=== PATIENT | male | born 1945 | race Hispanic/Latino ===

== ENCOUNTER 2022-12-19 11:47 | Inpatient (IN) | payer MEDICARE, OTHER ==
[~2022-12-19] VITALS: Ht 177.8 cm; Wt 88.0 kg
[2022-12-19] MEDS ORDERED: ACETAMINOPHEN 325 MG TAB PO ONE (12:30)
[2022-12-19] MEDS ORDERED: IBUPROFEN 600 MG TABLET PO ONE (12:30)
[2022-12-19] MEDS ORDERED: 0.9%NACL 1000ML 1,000 ML IV ONE (12:30)
[2022-12-19] MEDS ORDERED: PANTOPRAZOLE 40 MG/VIAL IVP ONE (12:30)
[2022-12-19] MEDS ORDERED: ONDANSETRON 4MG INJ IVP ONE (12:30)
[2022-12-19 12:34] LABS: SARS-CoV-2, RNA, NAAT NEGATIVE SARS CoV-2 (NEGATIVE)
[2022-12-19 12:35] LABS: RAPID GROUP A STREP negative (NEGATIVE)
[2022-12-19 12:40] LABS: INFLUENZA TYPE B Negative For Type B (NEGATIVE)
[2022-12-19 12:54] LABS: BASOPHILS # (AUTO) 0.03 K/uL (0.00-0.20); BASOPHILS % (AUTO) 0.4 % (0.0-5.0); EOSINOPHILS # (AUTO) 0.03 K/uL (0.00-0.70); EOSINOPHILS % (AUTO) 0.4 % (0.0-8.0); HEMATOCRIT 44.1 % (42-54); IMMATURE GRANULOCYTE ABSOLUTE 0.02 K/uL (0-1); LYMPHOCYTES # (AUTO) 0.7 K/uL (1.0-4.8); LYMPHOCYTES % (AUTO) 8.8 % (21.0-51.0); MEAN CORPUSCULAR HEMOGLOBIN 31.1 pg (27.0-33.0); MEAN CORPUSCULAR HGB CONC 34.2 g/dL (32.0-36.0); MEAN CORPUSCULAR VOLUME 90.7 fL (79-99); MONOCYTES # (AUTO) 1.3 K/uL (0.1-1.0); MONOCYTES % (AUTO) 14.8 % (3.0-13.0); NEUTROPHILS # (AUTO) 6.4 K/uL (1.8-7.7); NEUTROPHILS % (AUTO) 75.4 % (40.0-77.0); PLATELET COUNT (AUTO) 162 K/uL (130-400); RED BLOOD CELL COUNT(AUTO) 4.86 MIL/uL (4.50-6.20); RED CELL DISTRIBUTION WIDTH 12.5 % (11.0-15.5); WHITE BLOOD COUNT (AUTO) 8.4 K/uL (4.8-10.8)
[2022-12-19 13:03] LABS: CREATININE 1.1 mg/dL (0.5-1.5); POTASSIUM 3.7 mmol/L (3.5-5.1)
[2022-12-19 13:05] LABS: INR 1.05 (0.85-1.15); PROTHROMBIN TIME 12.1 SEC (9.6-11.6)
[2022-12-19 13:06] LABS: INFLUENZA TYPE A Positive For Type A (NEGATIVE)
[2022-12-19 13:08] LABS: ALBUMIN 3.7 g/dL (3.5-5.0); BILIRUBIN,TOTAL 1.3 mg/dL (0.2-1.0); TOTAL PROTEIN, SERUM 8.4 g/dL (6.0-8.3)
[2022-12-19 13:20] LABS: APPEARANCE,URINE CLEAR (CLEAR); BILIRUBIN,URINE NEGATIVE (NEGATIVE); COLOR,URINE YELLOW (YELLOW); GLUCOSE, URINE (UA) NEGATIVE (NEGATIVE); KETONES,URINE NEGATIVE (NEGATIVE); LEUKOCYTE ESTERASE ,URINE NEGATIVE Leu/uL (NEGATIVE); NITRATE,URINE NEGATIVE (NEGATIVE); OCCULT BLOOD,URINE MODERATE (NEGATIVE); PROTEIN,URINE 200 mg/dL (NEGATIVE)
[2022-12-19 13:21] LABS: ADD UA MICROSCOPIC YES
[2022-12-19 13:23] LABS: MUCUS,URINE RARE LPF (None Seen); WBC,URINE 0-1 /HPF (0-1)
[2022-12-19 13:44] LABS: BAND NEUTROPHILS % (MANUAL) 22 % (0-2); BASOPHILS % (MANUAL) 1 % (0-2); LYMPHOCYTES % (MANUAL) 9 % (22-44); MAN.DIFF COMMENT-IMPRESSION MANUAL DIFFERENTIAL; MONOCYTES % (MANUAL) 14 % (2-9); PLATELET MORPHOLOGY COMMENT ADEQUATE; SEGMENTED NEUTROPHILS % 54 % (40-70); TOTAL CELLS COUNTED 100; WBC MORPHOLOGY CONSISTENT W/DIFF
[2022-12-19] MEDS ORDERED: OSELTAMIVIR PHOSPHATE 75 MG CAP PO ONE (14:00)
[2022-12-19] MEDS ORDERED: ONDANSETRON 4MG INJ IVP PRN (15:00)
[2022-12-19] MEDS ORDERED: THIAMINE HCL 100 MG/ML 2ML VIAL IVP ONE (15:00)
[2022-12-19] MEDS ORDERED: 0.9%NACL 50ML IV SCH (15:00)
[2022-12-19] MEDS: 0.9%NACL 1000ML 1,000 ML IV SCH (15:10)
[2022-12-19] MEDS: ZOSYN 3.375GM +NS 50ML IVPB SCH ×2 (15:10→23:55)
[2022-12-19 15:11] VITALS: TEMP 100
[2022-12-19] MEDS ORDERED: 0.9%NACL 1000ML 1,461 ML IV ONE (15:30)
[2022-12-19] MEDS ORDERED: IPRATROPIUM/ALBUTEROL SULFATE 3 ML SOLUTION IH PRN (15:30)
[2022-12-19] MEDS ORDERED: ACETAMINOPHEN 500 MG TABLET PO PRN (15:30)
[2022-12-19] MEDS ORDERED: NITROGLYCERIN 0.4 MG SL TAB SL PRN (15:30)
[2022-12-19] MEDS ORDERED: BUDESONIDE 0.5 MG/2 ML INH IH SCH (15:30)
[2022-12-19 15:49] LABS: CHOLESTEROL 97 mg/dL (<200); HDL CHOLESTEROL 52 mg/dL (29-71); LDL DIRECT 42 mg/dL (0-99); TRIGLYCERIDES 56 mg/dL (30-200)
[2022-12-19 15:52] LABS: HEMOGLOBIN A1C 5.6 % (4.0-6.0)
[2022-12-19 15:56] LABS: MAGNESIUM 1.7 mg/dL (1.80-2.40); THYROID STIMULATING HORMONE 0.61 uIU/mL (0.36-3.74)
[2022-12-19] MEDS ORDERED: GUAIFENESIN-DM 200/20 MG 10 ML PO PRN (16:00)
[2022-12-19] MEDS ORDERED: KCL 20 MEQ ERTAB PO ONE (16:00)
[2022-12-19] MEDS ORDERED: DOXYCYCLINE 100MG+NS 250ML 250 ML IV SCH (16:30)
[2022-12-19 16:35] VITALS: BP 132/71; PULSE 67; RESP 20
[2022-12-19 18:57] VITALS: O2SAT 95
[2022-12-19 19:43] VITALS: PULSE 68; RESP 18
[2022-12-19] MEDS: BUDESONIDE 0.5 MG/2 ML INH IH SCH (19:43)
[2022-12-19 20:00] VITALS: BP 160/92; PULSE 82; RESP 20
[2022-12-19] MEDS: DOXYCYCLINE 100MG+NS 250ML 250 ML IV SCH (20:20)
[2022-12-19] MEDS ORDERED: ROSU10TA28 PO (22:29)
[2022-12-19] MEDS ORDERED: DILT120T PO (22:29)
[2022-12-19] MEDS ORDERED: LOSA50TA64 PO (22:29)
[2022-12-19] MEDS: OSELTAMIVIR PHOSPHATE 75 MG CAP PO SCH (23:55)
[2022-12-20] VITALS (11 sets, daily range): BP systolic 112–158; BP diastolic 69–92; PULSE 62–86; RESP 17–20; O2SAT 96–97
[2022-12-20] MEDS ORDERED: OSELTAMIVIR PHOSPHATE 75 MG CAP PO SCH (02:00)
[2022-12-20 04:39] LABS: BASOPHILS # (AUTO) 0.03 K/uL (0.00-0.20); BASOPHILS % (AUTO) 0.3 % (0.0-5.0); EOSINOPHILS # (AUTO) 0.01 K/uL (0.00-0.70); EOSINOPHILS % (AUTO) 0.1 % (0.0-8.0); HEMATOCRIT 40.5 % (42-54); IMMATURE GRANULOCYTE ABSOLUTE 0.04 K/uL (0-1); LYMPHOCYTES # (AUTO) 2.1 K/uL (1.0-4.8); LYMPHOCYTES % (AUTO) 21.9 % (21.0-51.0); MEAN CORPUSCULAR HEMOGLOBIN 31.5 pg (27.0-33.0); MEAN CORPUSCULAR HGB CONC 34.8 g/dL (32.0-36.0); MEAN CORPUSCULAR VOLUME 90.4 fL (79-99); MONOCYTES # (AUTO) 1.5 K/uL (0.1-1.0); MONOCYTES % (AUTO) 15.1 % (3.0-13.0); NEUTROPHILS % (AUTO) 62.2 % (40.0-77.0); PLATELET COUNT (AUTO) 161 K/uL (130-400); RED BLOOD CELL COUNT(AUTO) 4.48 MIL/uL (4.50-6.20); RED CELL DISTRIBUTION WIDTH 12.5 % (11.0-15.5); WHITE BLOOD COUNT (AUTO) 9.7 K/uL (4.8-10.8)
[2022-12-20 05:09] LABS: ALBUMIN 3.2 g/dL (3.5-5.0); BILIRUBIN,TOTAL 1.3 mg/dL (0.2-1.0); CREATININE 0.9 mg/dL (0.5-1.5); MAGNESIUM 1.9 mg/dL (1.80-2.40); POTASSIUM 3.6 mmol/L (3.5-5.1); TOTAL PROTEIN, SERUM 7.4 g/dL (6.0-8.3)
[2022-12-20] MEDS: BUDESONIDE 0.5 MG/2 ML INH IH SCH ×2 (06:36→18:21)
[2022-12-20] MEDS: 0.9%NACL 1000ML 1,000 ML IV SCH ×2 (07:15→09:00)
[2022-12-20] MEDS: PANTOPRAZOLE 40 MG TAB DR PO SCH (08:34)
[2022-12-20] MEDS: LOSARTAN 50 MG TABLET PO SCH (08:34)
[2022-12-20] MEDS: OSELTAMIVIR PHOSPHATE 75 MG CAP PO SCH ×2 (08:34→20:58)
[2022-12-20] MEDS: DOXYCYCLINE 100MG+NS 250ML 250 ML IV SCH ×2 (08:36→20:54)
[2022-12-20] MEDS ORDERED: PHARMACY COMMUNICATION MISC SCH (13:00)
[2022-12-20] MEDS: ZOSYN 3.375GM +NS 50ML IVPB SCH ×2 (13:43→22:42)
[2022-12-20] MEDS: ATORVASTATIN 20 MG TABLET PO SCH (20:58)
[2022-12-20] MEDS: DILTIAZEM 60MG TAB PO SCH (20:58)
[2022-12-20] MEDS ORDERED: DILTIAZEM HCL 120 MG PO SCH (21:00)
[2022-12-20] MEDS ORDERED: NON-FORMULARY MEDICATION 1 EACH (Rosuvastatin Calcium 1 TAB) PO SCH (21:00)
[2022-12-21] VITALS (12 sets, daily range): BP systolic 115–152; BP diastolic 67–91; PULSE 60–74; RESP 16–22; O2SAT 92–97
[2022-12-21 04:37] LABS: BASOPHILS # (AUTO) 0.02 K/uL (0.00-0.20); BASOPHILS % (AUTO) 0.3 % (0.0-5.0); EOSINOPHILS # (AUTO) 0.18 K/uL (0.00-0.70); EOSINOPHILS % (AUTO) 2.9 % (0.0-8.0); IMMATURE GRANULOCYTE ABSOLUTE 0.02 K/uL (0-1); LYMPHOCYTES # (AUTO) 1.9 K/uL (1.0-4.8); LYMPHOCYTES % (AUTO) 30.7 % (21.0-51.0); MEAN CORPUSCULAR HEMOGLOBIN 31.4 pg (27.0-33.0); MEAN CORPUSCULAR HGB CONC 34.4 g/dL (32.0-36.0); MEAN CORPUSCULAR VOLUME 91.3 fL (79-99); MONOCYTES # (AUTO) 0.9 K/uL (0.1-1.0); MONOCYTES % (AUTO) 14.4 % (3.0-13.0); NEUTROPHILS # (AUTO) 3.2 K/uL (1.8-7.7); NEUTROPHILS % (AUTO) 51.4 % (40.0-77.0); PLATELET COUNT (AUTO) 157 K/uL (130-400); RED BLOOD CELL COUNT(AUTO) 4.49 MIL/uL (4.50-6.20); RED CELL DISTRIBUTION WIDTH 12.7 % (11.0-15.5); WHITE BLOOD COUNT (AUTO) 6.2 K/uL (4.8-10.8)
[2022-12-21 04:58] LABS: ALBUMIN 3.1 g/dL (3.5-5.0); BILIRUBIN,TOTAL 1.2 mg/dL (0.2-1.0); CREATININE 0.9 mg/dL (0.5-1.5); MAGNESIUM 1.9 mg/dL (1.80-2.40); POTASSIUM 3.8 mmol/L (3.5-5.1); TOTAL PROTEIN, SERUM 7.3 g/dL (6.0-8.3)
[2022-12-21] MEDS: MAGNESIUM 2GM PREMIX 50ML 50 ML IV SCH (05:53)
[2022-12-21] MEDS: ZOSYN 3.375GM +NS 50ML IVPB SCH ×3 (05:53→22:11)
[2022-12-21] MEDS: BUDESONIDE 0.5 MG/2 ML INH IH SCH ×2 (06:26→19:34)
[2022-12-21] MEDS: 0.9%NACL 1000ML 1,000 ML IV SCH ×2 (07:00→20:14)
[2022-12-21] MEDS: DOXYCYCLINE 100MG+NS 250ML 250 ML IV SCH ×2 (09:01→19:44)
[2022-12-21] MEDS: DILTIAZEM 60MG TAB PO SCH ×2 (09:02→19:45)
[2022-12-21] MEDS: PANTOPRAZOLE 40 MG TAB DR PO SCH (09:02)
[2022-12-21] MEDS: LOSARTAN 50 MG TABLET PO SCH (09:02)
[2022-12-21] MEDS: OSELTAMIVIR PHOSPHATE 75 MG CAP PO SCH ×2 (09:02→19:45)
[2022-12-21] MEDS: ATORVASTATIN 20 MG TABLET PO SCH (19:44)
[2022-12-22 04:00] VITALS: BP 141/79; PULSE 60; RESP 17
[2022-12-22] MEDS: ZOSYN 3.375GM +NS 50ML IVPB SCH (05:18)
[2022-12-22 05:41] LABS: BASOPHILS # (AUTO) 0.02 K/uL (0.00-0.20); BASOPHILS % (AUTO) 0.3 % (0.0-5.0); EOSINOPHILS # (AUTO) 0.21 K/uL (0.00-0.70); EOSINOPHILS % (AUTO) 3.5 % (0.0-8.0); HEMATOCRIT 40.9 % (42-54); IMMATURE GRANULOCYTE ABSOLUTE 0.01 K/uL (0-1); LYMPHOCYTES # (AUTO) 2.1 K/uL (1.0-4.8); MEAN CORPUSCULAR HGB CONC 34.5 g/dL (32.0-36.0); MEAN CORPUSCULAR VOLUME 89.9 fL (79-99); MONOCYTES # (AUTO) 0.8 K/uL (0.1-1.0); MONOCYTES % (AUTO) 13.3 % (3.0-13.0); NEUTROPHILS # (AUTO) 2.9 K/uL (1.8-7.7); NEUTROPHILS % (AUTO) 47.7 % (40.0-77.0); PLATELET COUNT (AUTO) 169 K/uL (130-400); RED BLOOD CELL COUNT(AUTO) 4.55 MIL/uL (4.50-6.20); RED CELL DISTRIBUTION WIDTH 12.4 % (11.0-15.5); WHITE BLOOD COUNT (AUTO) 6.1 K/uL (4.8-10.8)
[2022-12-22 05:59] LABS: CREATININE 0.9 mg/dL (0.5-1.5); MAGNESIUM 1.9 mg/dL (1.80-2.40); POTASSIUM 3.8 mmol/L (3.5-5.1); TOTAL PROTEIN, SERUM 7.4 g/dL (6.0-8.3)
[2022-12-22] MEDS: MAGNESIUM 2GM PREMIX 50ML 50 ML IV SCH (06:05)
[2022-12-22 06:38] VITALS: PULSE 69; RESP 18
[2022-12-22] MEDS: BUDESONIDE 0.5 MG/2 ML INH IH SCH (06:38)
[2022-12-22 06:41] VITALS: PULSE 69; RESP 18; O2SAT 96
[2022-12-22 07:14] VITALS: O2SAT 96
[2022-12-22] MEDS ORDERED: OSEL75 PO (07:24)
[2022-12-22] MEDS ORDERED: AMOX1TAB16 PO (07:26)
[2022-12-22 07:40] VITALS: O2SAT 95
[2022-12-22 08:00] VITALS: BP 145/81; PULSE 63; RESP 18
[2022-12-22] MEDS: DOXYCYCLINE 100MG+NS 250ML 250 ML IV SCH (08:00)
[2022-12-22] MEDS: PANTOPRAZOLE 40 MG TAB DR PO SCH (08:59)
[2022-12-22] MEDS: OSELTAMIVIR PHOSPHATE 75 MG CAP PO SCH (08:59)
[2022-12-22] MEDS: LOSARTAN 50 MG TABLET PO SCH (08:59)
[2022-12-22] MEDS: DILTIAZEM 60MG TAB PO SCH (08:59)
[2022-12-22] MEDS: 0.9%NACL 1000ML 1,000 ML IV SCH (09:00)
[2022-12-22 21:08] LABS: MYCOPLASMA AB IGM 2146 U/mL (0-769)
== END 2022-12-22 10:45 | disposition home or self-care (01) | DRG 871 ==
LOC: EDH 11:47 → EDHIP 14:55 → 4DH 16:09
PROVIDERS: ADMIT Internal Medicine; ATTEND Internal Medicine
DX: A41.9 Sepsis, unspecified organism (principal); I21.A1 Myocardial infarction type 2; J10.00 Influenza due to other identified influenza virus with unspecified type of pneumonia; J96.01 Acute respiratory failure with hypoxia; E87.1 Hypo-osmolality and hyponatremia; M62.82 Rhabdomyolysis; J84.9 Interstitial pulmonary disease, unspecified; Z20.822 Contact with and (suspected) exposure to COVID-19; I10 Essential (primary) hypertension; J20.8 Acute bronchitis due to other specified organisms; K80.20 Calculus of gallbladder without cholecystitis without obstruction; E86.1 Hypovolemia; Z82.49 Family history of ischemic heart disease and other diseases of the circulatory system
CPT/HCPCS: 36415; 71045; 74181; 76705; 78226; 80053; 80061; 81001; 82550; 82948; 83036; 83605; 83690; 83735; 83874; 84145; 84443; 84484; 85025; 85610; 85651; 85730; 86140; 86738; 87040; 87088; 87449; 87635; 87804; 87880; 93005; 93306; 93356; 94640; 94664; A9537; C9113; C9803; G0378; J2405; J2543; J3411; J3475; J3490; J7030; S8037